=== PATIENT | male | born 1960 | race Caucasian/White ===

== ENCOUNTER 2021-12-09 10:16 | Inpatient (IN) | payer MEDICARE, OTHER ==
[~2021-12-09] VITALS: Ht 172.7 cm; Wt 90.7 kg
[2021-12-09 11:39] LABS: HEMATOCRIT 44.3 % (36.7-47.1); MEAN CORPUSCULAR HEMOGLOBIN 28.9 uug (23.8-33.4); MEAN CORPUSCULAR VOLUME 84.6 fL (73.0-96.2); PLATELET COUNT (AUTO) 218 K/uL (152-348)
[2021-12-09 12:21] LABS: CREATININE 2.5 mg/dL (0.6-1.3); POTASSIUM 4.8 mmol/L (3.5-5.1)
[2021-12-09 12:34] LABS: BILIRUBIN,TOTAL 0.3 mg/dL (0.2-1.0); TOTAL PROTEIN, SERUM 7.1 g/dL (6.4-8.2)
[2021-12-09] MEDS ORDERED: IV D5W 1000ML 1,000 ML IV ONE (13:30)
[2021-12-09] MEDS ORDERED: ASPIRIN 300 MG RECTAL SUPP RC SCH (14:45)
[2021-12-09] MEDS ORDERED: ASPIRIN 300 MG RECTAL SUPP RC ONE (15:02)
[2021-12-09] MEDS ORDERED: MORPHINE SULFATE 2 MG/1 ML DISP.SYRIN IV ONE ×2 (17:30→18:30)
[2021-12-09] MEDS ORDERED: ONDANSETRON 4 MG/2 ML VIAL IV PRN ×3 (17:30→19:45)
[2021-12-09] MEDS ORDERED: MORPHINE SULFATE 2 MG/1 ML DISP.SYRIN ONE ×2 (17:42→18:29)
[2021-12-09] MEDS ORDERED: ONDANSETRON 4 MG/2 ML VIAL ONE (18:29)
[2021-12-09] MEDS ORDERED: ALBUTEROL SULFATE 2.5 MG/ 0.5 ML NEBU NEB PRN (19:45)
[2021-12-09] MEDS ORDERED: LORAZEPAM 2 MG/1 ML VIAL IV PRN (19:45)
[2021-12-09] MEDS ORDERED: ACETAMINOPHEN 650 MG SUPP.RECT RC PRN (19:45)
[2021-12-10] MEDS ORDERED: IV D5 1/2 NS 1000 ML 1,000 ML IV PRN ×2 (03:00→20:00)
[2021-12-10] MEDS: PANTOPRAZOLE SODIUM 40 MG VIAL IV SCH ×2 (09:00→09:42)
[2021-12-10] MEDS: MORPHINE SULFATE 2 MG/1 ML DISP.SYRIN IV PRN ×2 (09:47→15:29)
[2021-12-10 09:52] LABS: HEMATOCRIT 46.5 % (36.7-47.1); MEAN CORPUSCULAR HEMOGLOBIN 28.2 uug (23.8-33.4); MEAN CORPUSCULAR VOLUME 85.3 fL (73.0-96.2); PLATELET COUNT (AUTO) 192 K/uL (152-348)
[2021-12-10] MEDS ORDERED: PANTOPRAZOLE SODIUM 40 MG VIAL ONE (09:52)
[2021-12-10] MEDS ORDERED: MORPHINE SULFATE 2 MG/1 ML DISP.SYRIN ONE ×2 (09:56→15:39)
[2021-12-10 10:35] LABS: BILIRUBIN,TOTAL 0.3 mg/dL (0.2-1.0); CREATININE 3.2 mg/dL (0.6-1.3); POTASSIUM 4.5 mmol/L (3.5-5.1); TOTAL PROTEIN, SERUM 7.9 g/dL (6.4-8.2)
[2021-12-10 10:38] LABS: MAGNESIUM 4.2 mg/dL (1.8-2.4)
[2021-12-10 10:39] LABS: THYROID STIMULATING HORMONE 0.731 mIU/mL (0.358-3.740)
[2021-12-10] MEDS: DEXAMETHASONE SOD PHOSPHATE 4 MG INJ IV SCH ×2 (16:19→22:14)
[2021-12-10] MEDS ORDERED: DEXAMETHASONE SOD PHOSPHATE 4 MG INJ ONE (16:32)
[2021-12-10] MEDS ORDERED: CEFTRIAXONE /D5W 50ML IVPB **ER PYXIS IV ONE (20:13)
[2021-12-10] MEDS: CEFTRIAXONE 1 G in IV DEXTROSE 5% 50 ML IV SCH (20:15)
[2021-12-10] MEDS ORDERED: VANCOMYCIN IV 1,250 MG in IV DEXTROSE 5% 250 ML IV ONE (21:00)
[2021-12-10] MEDS ORDERED: DEXAMETHASONE SOD PHOSPHATE 10 MG INJ ONE (22:15)
[2021-12-11] VITALS: BP 169/90
[2021-12-11] MEDS: DEXAMETHASONE SOD PHOSPHATE 4 MG INJ IV SCH ×4 (03:11→21:25)
[2021-12-11 05:00] VITALS: BP 151/88
[2021-12-11 07:50] LABS: CREATININE 3.4 mg/dL (0.6-1.3); POTASSIUM 4.9 mmol/L (3.5-5.1); VANCOMYCIN,RANDOM 18.1 ug/mL (18.0-26.0)
[2021-12-11] MEDS: PANTOPRAZOLE SODIUM 40 MG VIAL IV SCH (09:17)
[2021-12-11 10:02] LABS: MAGNESIUM 4.1 mg/dL (1.8-2.4); PHOSPHOROUS 8.1 mg/dL (2.5-4.9)
[2021-12-11 10:28] LABS: HEMATOCRIT 43.5 % (36.7-47.1); MEAN CORPUSCULAR HEMOGLOBIN 28.3 uug (23.8-33.4); MEAN CORPUSCULAR VOLUME 86.4 fL (73.0-96.2); PLATELET COUNT (AUTO) 105 K/uL (152-348)
[2021-12-11 11:54] VITALS: BP 155/99
[2021-12-11 16:20] VITALS: BP 164/103
[2021-12-11] MEDS ORDERED: IV D5 1/2 NS 1000 ML 1,000 ML IV PRN (19:15)
[2021-12-11] MEDS ORDERED: IV DEXTROSE 5%-0.2% NS 1,000 ML IV PRN (19:15)
[2021-12-11] MEDS ORDERED: LORAZEPAM 2 MG/1 ML VIAL IV PRN (19:45)
[2021-12-11 19:54] VITALS: BP 178/92
[2021-12-11] MEDS ORDERED: CLONIDINE-TTS 1 PATCH TD SCH (20:00)
[2021-12-11] MEDS: CEFTRIAXONE 1 G in IV DEXTROSE 5% 50 ML IV SCH (20:16)
[2021-12-11] MEDS ORDERED: CLONIDINE-TTS 1 PATCH TD ONE (21:25)
[2021-12-12 00:04] VITALS: BP 162/93
[2021-12-12] MEDS: DEXAMETHASONE SOD PHOSPHATE 4 MG INJ IV SCH ×2 (03:39→09:11)
[2021-12-12 04:00] VITALS: BP 162/90
[2021-12-12 06:00] VITALS: BP 152/85
[2021-12-12 06:40] LABS: HEMATOCRIT 44.7 % (36.7-47.1); MEAN CORPUSCULAR HEMOGLOBIN 28.1 uug (23.8-33.4); MEAN CORPUSCULAR VOLUME 84.6 fL (73.0-96.2); PLATELET COUNT (AUTO) 224 K/uL (152-348)
[2021-12-12 07:20] LABS: BILIRUBIN,TOTAL 0.3 mg/dL (0.2-1.0); CREATININE 4.1 mg/dL (0.6-1.3); PHOSPHOROUS 6.9 mg/dL (2.5-4.9); POTASSIUM 4.2 mmol/L (3.5-5.1); TOTAL PROTEIN, SERUM 7.4 g/dL (6.4-8.2); VANCOMYCIN,RANDOM 11.6 ug/mL (18.0-26.0)
[2021-12-12 08:29] LABS: MAGNESIUM 4.5 mg/dL (1.8-2.4)
[2021-12-12] MEDS: PANTOPRAZOLE SODIUM 40 MG VIAL IV SCH (08:57)
[2021-12-12] MEDS ORDERED: VANCOMYCIN IV 1,250 MG in IV DEXTROSE 5% 250 ML IV ONE (09:00)
[2021-12-12 13:39] VITALS: BP 156/80
[2021-12-12] MEDS ORDERED: MORPHINE SULFATE PF IV DRIP 500 MG in IV DEXTROSE 5% 230 ML IV PRN (15:15)
[2021-12-12 16:00] VITALS: BP 169/98
[2021-12-13 04:03] VITALS: BP 119/77
[2021-12-13 12:00] VITALS: BP 118/63
[2021-12-13] MEDS: MORPHINE SULFATE PF IV DRIP 500 MG in IV DEXTROSE 5% 230 ML IV PRN (13:52)
[2021-12-13 16:00] VITALS: BP 99/62
[2021-12-13] MEDS: LORAZEPAM 2 MG/1 ML VIAL IV PRN ×2 (18:29→21:18)
[2021-12-13 20:00] VITALS: BP 97/59
[2021-12-14] MEDS: LORAZEPAM 2 MG/1 ML VIAL IV PRN ×3 (01:33→13:54)
[2021-12-14 09:48] VITALS: BP 91/49
[2021-12-14] MEDS: MORPHINE SULFATE PF IV DRIP 500 MG in IV DEXTROSE 5% 230 ML IV PRN (10:03)
[2021-12-14 16:00] VITALS: BP 70/42
== END 2021-12-14 20:30 | DRG 871 ==
LOC: ER 10:16 → TRANSITION 14:30 → TELE3 12-10 22:51 → MEDSURG3 12-13 10:25
PROVIDERS: ADMIT Internal Medicine; ATTEND Internal Medicine
PROC: 05HB33Z Insertion of Infusion Device into Right Basilic Vein, Percutaneous Approach (ICD-10-PCS; principal; 2021-12-11)
DX: A41.9 Sepsis, unspecified organism (principal); J96.00 Acute respiratory failure, unspecified whether with hypoxia or hypercapnia; G92.8 Other toxic encephalopathy; I21.A1 Myocardial infarction type 2; J96.01 Acute respiratory failure with hypoxia; J69.0 Pneumonitis due to inhalation of food and vomit; N17.0 Acute kidney failure with tubular necrosis; C79.31 Secondary malignant neoplasm of brain; C34.90 Malignant neoplasm of unspecified part of unspecified bronchus or lung; D68.59 Other primary thrombophilia; N39.0 Urinary tract infection, site not specified; I11.0 Hypertensive heart disease with heart failure; I50.9 Heart failure, unspecified; Z51.5 Encounter for palliative care; Z66 Do not resuscitate; R73.9 Hyperglycemia, unspecified; I70.0 Atherosclerosis of aorta; N40.0 Benign prostatic hyperplasia without lower urinary tract symptoms; Z74.09 Other reduced mobility; Z87.891 Personal history of nicotine dependence; Z20.822 Contact with and (suspected) exposure to COVID-19
CPT/HCPCS: 36415; 70030-TC; 70450; 71045; 76770; 82378; 83550; 83605; 83615; 83735; 84100; 84153; 84443; 85025; 85730; 86140; 87040; 93005; A4663; A6209; C9113; G0378; J0696; J1100; J2060; J2270; J2274; J2405; J3490; J7030; J7060; U0003